=== PATIENT | female | born 1955 | race Caucasian/White ===

== ENCOUNTER → 2017-02-23 19:40 | Emergency (ER) | payer OTHER ==
[2017-02-23 20:44] VITALS: BP 87/65
--- NOTE | 2017-02-23 21:15 | UC ---
Complaint Female HPI - HPI Summary HPI Summary: vaginal odor, no discharge, no fever - History Of Current Complaint Chief Complaint: UCGU Stated Complaint: FEMALE PROBLEM Time Seen by Provider: 02/23/17 20:55 Hx Obtained From: Patient Hx Last Menstrual Period: post menopausal ?: No Onset/Duration: Gradual Onset, Lasting Weeks - 1, Still Present Severity Initially: Mild Severity Currently: Mild Pain Intensity: 0 Aggravating Factor(s): Nothing Alleviating Factor(s): Nothing Associated Signs And Symptoms: Positive: Negative - Allergies/Home Medications Allergies/Adverse Reactions: Allergies Allergy/AdvReac Type Severity Reaction Status Date / Time Chocolate Allergy GI Upset Verified 01/21/16 10:21 Molds & Smuts Allergy See Comment Verified 01/21/16 10:21 Pollen Extract Allergy See Comment Verified 01/21/16 10:21 Soy Allergy Allergy Unknown Verified 01/21/16 10:21 Reaction Details Codeine AdvReac Mild Unknown Verified 01/21/16 10:22 Reaction Details Prednisone AdvReac Mild Unknown Verified 01/21/16 10:21 Reaction Details carob Allergy Unknown Uncoded 01/21/16 10:21 Reaction Details Dairy Allergy GI Upset Uncoded 01/21/16 10:21 LIDOCAINE Allergy Dizziness Uncoded 02/03/16 13:02 PMH/Surg Hx/FS Hx/Imm Hx Previously Healthy: No Psychological History: Anxiety, Other Other Psychological History: insomnia - Surgical History Surgical History: Yes Surgery Procedure, Year, and Place: tonsillectomy, right arm surgery -HUMERUS ( FX-TWICE - AND ALL HARDWARE REMOVED), Lt knee arthroscopy, Rt BARTHOLIN gland marsupialization, Right Middle Ear 2015- conductive hearing loss (has a prosthesis)- NEEDS OP REPORT FROM SURGERY. BIOPSY CLIP- Lt BREAST. DIAVIATED SEPTUM - FX'D AND SEVERAL SURGERIES FOR CORRECTIONS - Family History Known Family History: Positive: None - Social History Occupation: Works From/At Home Lives: With Family Alcohol Use: Rare Alcohol Amount: [place] Substance Use Type: None, Prescribed Substance Use Comment - Amount & Last Used: SLEEP-XANAX,AMBIEN ,SON[place] Smoking Status (MU): Never Smoked Tobacco Have You Smoked in the Last Year: No - Immunization History Most Recent Influenza Vaccination: december 2014 Most Recent Tetanus Shot: around 7-9 years ago Most Recent Pneumonia Vaccination: 2014 Review of Systems Constitutional: Negative Skin: Negative Eyes: Negative ENT: Negative Respiratory: Negative Cardiovascular: Negative Gastrointestinal: Negative Genitourinary: Negative, Other - vaginal odor Motor: Negative Neurovascular: Negative Musculoskeletal: Negative Neurological: Negative Psychological: Negative Is Patient Immunocompromised?: No All Other Systems Reviewed And Are Negative: Yes Physical Exam Triage Information Reviewed: Yes Appearance: Well-Appearing, No Pain Distress, Well-Nourished Vital Signs: Initial Vital Signs Temp 97.1 F 02/23/17 20:28 Pulse 80 02/23/17 20:28 Resp 16 02/23/17 20:28 BP 87/65 02/23/17 20:28 Pulse Ox 100 02/23/17 20:28 Vital Signs Reviewed: Yes Eye Exam: Normal Eyes: Positive: Conjunctiva Clear ENT Exam: Normal ENT: Positive: Normal ENT inspection, Hearing grossly normal. Negative: Nasal congestion, Tonsillar swelling, Tonsillar exudate, Trismus, Muffled voice Dental Exam: Normal Neck exam: Normal Neck: Positive: Supple, Nontender Respiratory Exam: Normal Respiratory: Positive: Chest non-tender, No respiratory distress, No accessory muscle use Cardiovascular Exam: Normal Cardiovascular: Positive: RRR, Pulses Normal, Brisk Capillary Refill Abdominal Exam: Normal Abdomen Description: Positive: Nontender, No Organomegaly, Soft. Negative: CVA Tenderness (R), CVA Tenderness (L) Bowel Sounds: Positive: Present Musculoskeletal Exam: Normal Musculoskeletal: Positive: Strength Intact, ROM Intact, No Edema Neurological Exam: Normal Neurological: Positive: Alert, Muscle Tone Normal Psychological Exam: Normal Skin Exam: Normal UC Physical Exam Vital Signs On Initial Exam: Initial Vitals Temp Pulse Resp BP Pulse Ox 97.1 F 80 16 87/65 100 02/23/17 20:28 02/23/17 20:28 02/23/17 20:28 02/23/17 20:28 02/23/17 20:28 - Genitalia Exam Female Genitourinary: Other - no odor noted, no discharge, small abrasion in fold between labia minora and majora on the left Complaint Female Dx - Course Course Of Treatment: monostat cream, follow with Dr. Spaulding - Differential Dx/Diagnosis Provider Diagnoses: vulvovaginal candidias, bppv, Discharge - Discharge Plan Condition: Stable Disposition: HOME Patient Education Materials: Vulvovaginal Candidiasis (ED), Benign Paroxysmal Positional Vertigo (ED) Referrals: Nitesh Howe MD [Primary Care Provider] - If Needed
== END | disposition home or self-care (01) ==
LOC: UCEAST 19:40
DX: B37.3 Candidiasis of vulva and vagina (principal); H81.10 Benign paroxysmal vertigo, unspecified ear; S30.814A Abrasion of vagina and vulva, initial encounter; Z91.011 Allergy to milk products; Z88.5 Allergy status to narcotic agent; Z91.018 Allergy to other foods; Z91.048 Other nonmedicinal substance allergy status; Z88.8 Allergy status to other drugs, medicaments and biological substances; Z97.4 Presence of external hearing-aid; X58.XXXA Exposure to other specified factors, initial encounter; Y92.9 Unspecified place or not applicable
CPT/HCPCS: 81003; 87480; 87510; 87660